=== PATIENT | male | born 1985 | race Caucasian/White ===

== ENCOUNTER 2018-10-27 19:29 | Emergency (ER) | payer SELFPAY ==
[~2018-10-27] VITALS: Ht 190.5 cm; Wt 97.7 kg
[~2018-10-27 19:29] MED LIST: ANUSOL-HC SUPPO25 MG RC; COLACE 100100 MG/CAP PO
[2018-10-27 19:42] VITALS: BP 166/94; TEMP 97.9
[2018-10-27 21:12] VITALS: PULSE 63
== END 2018-10-27 21:14 | disposition home or self-care (01) ==
LOC: COL.ER 19:29
DX: S60.031A Contusion of right middle finger without damage to nail, initial encounter (principal); W22.8XXA Striking against or struck by other objects, initial encounter; Y92.009 Unspecified place in unspecified non-institutional (private) residence as the place of occurrence of the external cause